=== PATIENT | female | born 1990 | race Caucasian/White ===

== ENCOUNTER 2022-12-07 14:39 | Emergency (ER) | payer BC ==
[2022-12-07 15:40] LABS: #Monocytes 0.5 10x3/uL (0.0-1.1); #Neutrophils 2.5 10x3/uL (1.5-8.4); %Lymphocytes 17.4 % (18.0-47.0); %Monocytes 13.3 % (0.0-10.0); %Neutrophils 68.7 % (40.0-75.0); Hemoglobin 11.4 g/dL (12.0-15.5); Mean Corpuscular HGB CONC 31.8 g/dL (32.0-36.0); Mean Corpuscular Hemoglobin 24.2 pg (27.0-33.0); Mean Corpuscular Volume 75.8 fl (81.6-98.3); Mean Platelet Volume 9.1 fl (7.4-10.4); Platelet Count 131 10x3/uL (150-450); Red Blood Cell (RBC) Count 4.72 10x6/uL (3.90-5.03); White Blood Cell (WBC) Count 3.6 10x3/uL (3.5-10.5)
[2022-12-07 15:45] LABS: ALT (SGPT) 12 U/L (8-55); AST (SGOT) 26 U/L (5-34); Albumin 3.8 g/dL (3.5-5.0); Alkaline Phosphatase 97 U/L (40-110); Anion Gap 11 mmol/L (10-20); BUN (Urea Nitrogen) 12 mg/dL (7.0-18.7); Bilirubin, Total 0.5 mg/dL (0.2-1.2); Calc. Creatinine Clearance 0 mL/min (70-130); Calcium 8.8 mg/dL (7.8-10.44); Carbon Dioxide 25 mmol/L (22-29); Chloride 106 mmol/L (98-107); Estimated GFR 113; Globulin 3.5 g/dL (2.4-3.5); Glucose 91 mg/dL (70-105); Protein, Total 7.3 g/dL (6.0-8.3); Sodium 138 mmol/L (136-145)
[2022-12-07] MEDS ORDERED: Acetaminophen 500 MG TAB ONE (15:57)
[2022-12-07] MEDS ORDERED: Meclizine HCl 25 MG TAB ONE (15:57)
== END 2022-12-07 17:02 | disposition home or self-care (01) ==
LOC: CSHERS 14:39
DX: R42 Dizziness and giddiness (principal)
CPT/HCPCS: 70450; 71045; 72125; 80053; 85025; 93005

== ENCOUNTER 2024-08-30 22:37 | Emergency (ER) | payer BC ==
[2024-08-31 03:19] LABS: #Basophils 0.01 10x3/uL (0.0-0.2); #Monocytes 0.56 10x3/uL (0.0-1.1); #Neutrophils 1.52 10x3/uL (1.5-8.4); %Basophils 0.3 % (0.0-2.0); %Lymphocytes 32.3 % (18.0-47.0); %Monocytes 17.7 % (0.0-10.0); %Neutrophils 48.1 % (40.0-75.0); Hematocrit 33.6 % (34.9-44.5); Hemoglobin 10.2 g/dL (12.0-15.5); Mean Corpuscular HGB CONC 30.4 g/dL (32.0-36.0); Mean Corpuscular Hemoglobin 23.6 pg (27.0-33.0); Mean Corpuscular Volume 77.8 fL (81.6-98.3); Platelet Count 127 10x3/uL (150-450); RBC Distribution Width 18.9 % (11.5-14.5); Red Blood Cell (RBC) Count 4.32 10x6/uL (3.90-5.03); White Blood Cell (WBC) Count 3.1 10x3/uL (3.5-10.5)
[2024-08-31 03:33] LABS: ALT (SGPT) 25 U/L (8-55); AST (SGOT) 30 U/L (5-34); Albumin 3.2 g/dL (3.5-5.0); Alkaline Phosphatase 121 U/L (40-110); Anion Gap 12 mmol/L (10-20); BUN (Urea Nitrogen) 9 mg/dL (7.0-18.7); Bilirubin, Total 0.4 mg/dL (0.2-1.2); Calc. Creatinine Clearance 0 mL/min (70-130); Calcium 8.9 mg/dL (7.8-10.44); Carbon Dioxide 24 mmol/L (22-29); Chloride 106 mmol/L (98-107); Estimated GFR 103; Globulin 4.5 g/dL (2.4-3.5); Glucose 91 mg/dL (70-105); Potassium 3.9 mmol/L (3.5-5.1); Protein, Total 7.7 g/dL (6.0-8.3); Sodium 138 mmol/L (136-145)
[2024-08-31 03:39] LABS: Troponin I 0.013 ng/mL (< 0.028)
[2024-08-31] MEDS ORDERED: Ondansetron PF 4 MG/2 ML Vial ONE (04:54)
[2024-08-31] MEDS ORDERED: VANCOMYCIN 2 GM, Admixture Fee 1 EACH in Sodium Chloride 0.9% 500 ML IVPB SCH (05:00)
[2024-08-31] MEDS ORDERED: Iopamidol 370 76% 100 ML VIAL ONE (15:29)
== END 2024-08-31 08:38 | disposition short-term general hospital (02) ==
LOC: CSHERS 22:37
DX: L03.116 Cellulitis of left lower limb (principal)
CPT/HCPCS: 36415; 71045; 71275; 80053; 83605; 83735; 83880; 84484; 85025; 85379; 87040; 93005; 96374; 96375; J2405; J7030; Q9967